=== PATIENT | female | born 1950 | race Caucasian/White ===

== ENCOUNTER → 2017-07-06 | Outpatient (CLI) | payer OTHER | LOC: M RAD 12:03 | DX: R22.42 Localized swelling, mass and lump, left lower limb (principal) | CPT/HCPCS: 93971 ==

== ENCOUNTER → 2017-08-31 | Outpatient (CLI) | payer OTHER | LOC: M RAD 10:43 | DX: I87.393 Chronic venous hypertension (idiopathic) with other complications of bilateral lower extremity (principal); M79.605 Pain in left leg; R22.42 Localized swelling, mass and lump, left lower limb | CPT/HCPCS: 93971 ==

== ENCOUNTER 2017-10-17 09:20 | Outpatient (RCR) | payer OTHER | END 2017-10-18 | disposition home or self-care (01) | LOC: M PT 09:20 | DX: Z51.89 Encounter for other specified aftercare (principal); R22.42 Localized swelling, mass and lump, left lower limb; I89.0 Lymphedema, not elsewhere classified | CPT/HCPCS: 97163 ==

== ENCOUNTER 2017-11-30 08:40 | Outpatient (RCR) | payer OTHER | END 2017-12-18 | LOC: M PT 12-01 12:36 | DX: R22.42 Localized swelling, mass and lump, left lower limb (principal); I89.0 Lymphedema, not elsewhere classified | CPT/HCPCS: 97140 ==

== ENCOUNTER 2017-12-19 08:22 | Outpatient (RCR) | payer OTHER | END 2018-01-18 | LOC: M PT 08:22 | DX: R22.42 Localized swelling, mass and lump, left lower limb (principal) | CPT/HCPCS: 97140 ==

== ENCOUNTER 2018-06-21 08:56 | Outpatient (RCR) | payer MEDICARE ==
[~2018-06-21 08:56] MED LIST: ACET500C PO; ASPI-225 PO; ASPI81TA85 PO; ATOR40TA75 PO; BISO5TAB5 PO; CALTTAB11 PO; CLAR10CA3 PO; COUM2.5T17 PO; CYCL10TA PO; DEMA20TA6 PO; DIAZ5TAB PO; DOCU100C16 PO; DYAZ37.5 PO; FLOV100A3 IN; FLUTISP; GARL10004 PO; LEVAINH INH; LIPI20TA PO; LOSA100T50 PO; MULTCAP PO; OMEG100011 PO; PERC5TAB12 PO; PROT1TAB2 PO; RANI1TAB6 PO; ROPI0.5T PO; SING10TA32 PO; SUCR1TA PO; TIZA4CAP PO; TRAM50TA2 PO; TYLE325T5 PO; ULTR50TA8 PO; VITA250L PO; VITA30004 PO; [UNRECOGNIZED DRUG - OTHER] TOP; calcium carbonate OR; cholecalciferol OR; flaxseed OR; lidocaine patch TOP
== END 2018-07-18 ==
LOC: M PT 08:56
PROVIDERS: ATTEND Surgery Vascular Surgery
DX: R22.42 Localized swelling, mass and lump, left lower limb (principal)

== ENCOUNTER → 2018-11-04 | Outpatient (CLI) | payer MEDICARE ==
--- NOTE | 2018-11-05 09:25 | REP ---
MRI LUMBAR SPINE WITHOUT CONTRAST: 11/04/2018. Comparison: 09/24/2016. Clinical history: Low back pain. Spinal stenosis. Evaluate for HNP or other. Technique: Standard axial and sagittal images in multiple sequences provided. There is decreased disc water signal throughout the lumbar spine although least at the L2-3 level. The disc heights are diminished as well except at the L2-3 level. All of this is unchanged. Vertebral body heights are maintained. There are a few scattered small hemangiomas in the vertebral bodies at L3, L2 and T12. There are discogenic endplate changes most prominently at L5-S1 and L4-5. Grade 1 anterolisthesis of L4 on 5. Conus terminates at superior aspect of L1. T11-12, T12-L1 and L1-2 levels show no spinal or foraminal stenosis. There is mild disc bulge and facet hypertrophy at L1-2. At L2-3, there is no significant disc bulge or herniation and no spinal or foraminal stenosis. At L3-4, there is a broad-based disc bulge thinning the ventral subarachnoid space. Ligamentum and facet hypertrophy combine to cause some central canal stenosis with loss of much of the subarachnoid space and crowding of the nerve roots. This has increased significantly since the previous study. The left paracentral disc extrusion on the previous study is much smaller. Bulge extends into the foramina on both sides. There is loss of perineural fat, more on the left than right, but no nerve root compression. At L4-5, there is a broad-based disc bulge with left paracentral disc extrusion. This abuts and displaces the left L5 nerve root. There is lateral recess stenosis on the right. Central canal stenosis due to that factor and some ligamentous and facet hypertrophy. This stenosis has also increased due to combined factors and that disc extrusion, which has increased. There is foraminal encroachment and nerve root compression of both L4 roots at this level within the foramina. At L5-S1, there is also a broad-based disc bulge with small central disc protrusion, ligamentum and facet hypertrophy contribute to lateral recess stenosis. The bulge abuts the S1 nerve roots in the canal. There is bilateral foraminal encroachment with L5 nerve root compression due to the broad-based disc bulge which is circumferential and the facet hypertrophic changes. Impression: 1. The L3-4 diffuse disc bulge is again noted but the disc extrusion is smaller than last year's study. Due to combined factors, however, central canal stenosis is worse. Loss of perineural fat but no nerve root compression noted. 2. The L4-5 disc level shows tight spinal stenosis with a grade 1 anterolisthesis unchanged and with a broad-based disc bulge and left paracentral disc extrusion, this extrusion is larger than last year's study and contributes to the worsening central canal stenosis. There is bilateral foraminal encroachment with L4 nerve root compression due to combined factors. 3. The L5-S1 level shows mild broad-based disc bulge with small central disc protrusion with lateral recess stenosis abutting the S1 nerve roots. The bilateral L5 nerve roots in the foramina show compression due to combined factors. 4. Levels above without significant spinal or foraminal stenosis. Electronically Signed by Mike Karimi MD 11/05/2018 08:15 P
== END ==
LOC: M RAD 13:15
PROVIDERS: ATTEND Orthopaedic Surgery
DX: M48.061 Spinal stenosis, lumbar region without neurogenic claudication (principal); M51.26 Other intervertebral disc displacement, lumbar region

== ENCOUNTER 2018-12-21 07:41 | Outpatient (RCR) | payer MEDICARE ==
[~2018-12-21 07:41] MED LIST changes: -BISO5TAB5 PO; +BISO5TAB9 PO; +RANI-356 PO; -RANI1TAB6 PO
== END 2019-01-18 ==
LOC: M PT 07:41
PROVIDERS: ATTEND Family Medicine
DX: R22.42 Localized swelling, mass and lump, left lower limb (principal); I89.0 Lymphedema, not elsewhere classified

== ENCOUNTER → 2018-12-29 | Outpatient (CLI) | payer MEDICARE ==
[~2018-12-29] MED LIST changes: +LIDOCAINE 1% MDV 20ML VIAL As Ordered ONE
[2018-12-29 13:45] VITALS: BP 170/74
--- NOTE | 2019-01-02 09:16 | REP ---
CT-GUIDED LEFT HIP BIOPSY The procedure was performed under the direct supervision of Dr. Pugh. The patient has a history of chronic deformity of the left hip including loss of the normal left femoral head and a large amount of granulation tissue replacing the left hip joint seen on a previous MRI from [facility] performed on 11/24/2018. The risks and benefits of the procedure were explained to the patient and informed consent was obtained. The left hip joint was localized using CT guidance. The skin was prepped and draped in a sterile fashion. 1% lidocaine was used as a local anesthetic. A using CT guidance a 17/18 gauge coaxial needle biopsy system was inserted and advanced into the joint. Eight core biopsy samples and a few drops of red colored aspirate were withdrawn and sent to lab for analysis. The patient tolerated the procedure well and there were no immediate complications. After the appropriate amount of monitored convalescence the patient was discharged from the department. Electronically Signed by KATHI Lopez 12/29/2018 02:58 P Electronically Signed by Juan J Pugh MD 01/02/2019 09:08 A
== END ==
LOC: M IRPRO 11:50
DX: M25.852 Other specified joint disorders, left hip (principal); Z88.8 Allergy status to other drugs, medicaments and biological substances

== ENCOUNTER → 2019-02-01 | Outpatient (CLI) | payer MEDICARE ==
[~2019-02-01] MED LIST changes: -LIDOCAINE 1% MDV 20ML VIAL As Ordered ONE
--- NOTE | 2019-02-01 09:20 | ECGEPIP ---
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
[2019-02-01 09:23] LABS: HEMATOCRIT 36.4 % (36.0-47.0); HEMOGLOBIN 11.9 g/dl (12.0-15.5); MEAN CORPUSCULAR HEMOGLOBIN 30.7 pg (27.0-33.0); MEAN CORPUSCULAR HGB CONC 32.7 g/dl (32.0-36.5); MEAN CORPUSCULAR VOLUME 93.8 fl (80.0-96.0); PLATELET COUNT, AUTOMATED 299 10^3/uL (150-450); RED BLOOD COUNT 3.88 10^6/uL (4.00-5.40); WHITE BLOOD COUNT 7.3 10^3/uL (4.0-10.0)
[2019-02-01 09:38] LABS: INR 1.03; PROTHROMBIN TIME 13.2 SECONDS (11.8-14.0)
[2019-02-01 09:44] LABS: ERYTHROCYTE SEDIMENTATION RATE 60 mm/hr (0-30)
[2019-02-01 09:49] LABS: ALBUMIN 3.7 GM/DL (3.2-5.2); ALT/SGPT 21 U/L (12-78); BILIRUBIN,TOTAL 0.9 MG/DL (0.2-1.0); BLOOD UREA NITROGEN 12 MG/DL (7-18); CALCIUM LEVEL 9.5 MG/DL (8.8-10.2); CARBON DIOXIDE LEVEL 29 MEQ/L (21-32); CHLORIDE LEVEL 105 MEQ/L (98-107); CREATININE FOR GFR 0.62 MG/DL (0.55-1.30); GLOMERULAR FILTRATION RATE > 60.0 (>39); GLUCOSE, FASTING 103 MG/DL (70-100); POTASSIUM SERUM 3.5 MEQ/L (3.5-5.1); SODIUM LEVEL 141 MEQ/L (136-145); TOTAL PROTEIN 7.5 GM/DL (6.4-8.2)
--- NOTE | 2019-02-01 11:49 | REP ---
Chest x-ray: Two views. History: Left hip osteoarthritis. Preop. Comparison study: January 18, 2017. Findings: There are granulomatous calcific residuals. Heart is mildly enlarged unchanged. Lungs are well inflated and otherwise clear. The aorta is slightly tortuous. There are clips in right upper quadrant of the abdomen and degenerative changes are seen in the thoracic spine as before. Impression: Mild cardiomegaly. Old granulomatous changes. Otherwise no acute disease. Electronically Signed by Alejandro Barrera MD 02/01/2019 12:09 P
== END ==
LOC: M LAB 07:59
PROVIDERS: ATTEND Orthopaedic Surgery
DX: Z01.811 Encounter for preprocedural respiratory examination (principal); M16.11 Unilateral primary osteoarthritis, right hip; I51.7 Cardiomegaly

== ENCOUNTER 2019-02-09 06:07 | Inpatient (IN) | payer MEDICARE ==
--- NOTE | 2019-02-07 10:20 | HPE ---
DATE OF ANTICIPATED ADMISSION: 02/09/2019 ATTENDING PHYSICIAN: Dr. Wells CHIEF COMPLAINT: Left hip pain and stiffness. HISTORY: The patient is a 69-year-old female with progressively worsening left hip pain and stiffness. She has failed to improve with conservative measures. She continues to have symptoms with weightbearing activities and activities of daily living. She has consented for an elective left total hip arthroplasty with Dr. Wells for her continued symptoms. Medical optimization pending with Dr. Dwyer. CURRENT MEDICATIONS: - Protonix 40 mg daily - a daily multivitamin - losartan 100 mg daily - Requip 0.5 mg every evening - nystatin/triamcinolone ointment twice daily as needed - Ultram 50 mg every 6 hours as needed for pain - Singulair 10 mg at bedtime - Flovent 100 mcg once daily - levalbuterol 45 mcg inhaler as needed - Lipitor 40 mg daily - vitamin B12 250 mcg daily - Tylenol 500 mg twice daily - aspirin 81 mg daily - bisoprolol 5 mg daily - docusate 100 mg twice daily - calcium with vitamin D 600/800 mg daily - Flonase 2 sprays in each nostril daily MEDICATION ALLERGIES: MECLIZINE, SUDAFED. CHRONIC MEDICAL CONDITIONS: 1. Hypertension. 2. Hyperlipidemia. 3. Gastroesophageal reflux disease. 4. Hiatal hernia. 5. Asthma. 6. Restless leg syndrome. 7. Obstructive sleep apnea. SURGICAL HISTORY: 1. Tubal ligation. 2. Carpal tunnel release bilaterally. 3. Cholecystectomy. 4. Cataract removal. 5. Right total knee arthroplasty. SOCIAL HISTORY: Patient denies tobacco and alcohol use. Patient is and lives at home with spouse. REVIEW OF SYSTEMS: Patient denies fevers, chills, nausea, vomiting or diarrhea. She denies chest pain, shortness of breath, lightheadedness, dizziness or headaches. She denies any abdominal pain. She denies any recent upper respiratory or urinary tract infection symptoms. She continues to have left hip pain with weightbearing activities and activities of daily living. PHYSICAL EXAMINATION: General: Well-nourished, well-developed female, in no apparent distress. She is alert, oriented and cooperative. Mood and affect are appropriate. Vital signs: Height 4 feet 8 inches. Weight 205 pounds. Temperature 96.7. Blood pressure 124/72. Heart rate 70. Respirations 14. Neck: Supple without lymphadenopathy. Heart: Regular rate and rhythm. Lungs: Clear to auscultation bilaterally. Breathing is regular and nonlabored. Abdomen: Bowel sounds present. Abdomen is soft and nontender to palpation. Musculoskeletal: Left hip exhibits no gross abnormalities. Skin is intact. She has significantly decreased flexion internal and external rotation at the hip. Strength is 4+/5 secondary to pain. Calf is soft, nontender to palpation with no palpable cords noted. She is neurovascularly intact distally. LABORATORY DATA: Chest x-ray: Mild cardiomegaly with old granulomatous changes. Otherwise, no acute disease. Left hip x-ray: Notable for severe advanced end-stage degenerative changes. EKG: Sinus tachycardia with low QRS voltage in the precordial leads. Possible anterior myocardial infarction probably old poor R wave progression (PRWP) without change. Possible inferior wall myocardial infarction (IA), age undetermined. Prothrombin time 13.2, INR 1.03. Complete blood count: ESR elevated at 60, WBC 7.3, RBC decreased at 3.88, hemoglobin decreased at 11.9, hematocrit 36.4, platelets 299. Comprehensive metabolic profile: Fasting glucose elevated at 103. BUN 12, creatinine 0.62, GFR greater than 60. Sodium 141, potassium 3.5, chloride 105, carbon dioxide 28. Anion gap decreased at 7. Calcium 9.5. AST 29, ALT 21, alkaline phosphatase 86. Total bilirubin 0.9. Total protein 7.5. Albumin 3.7. Albumin-globulin ratio decreased at 0.97. IMPRESSION: Left hip osteoarthritis with x-rays notable for severe advanced degenerative changes. PLAN: Patient has consented for an elective left total hip arthroplasty with Dr. Wells for her continued symptoms. Medical optimization pending with Dr. Dwyer. FRANKIE
[2019-02-09] VITALS (8 sets, daily range): BP systolic 138–147; BP diastolic 71–80
[~2019-02-09] VITALS: Ht 170.2 cm; Wt 93.0 kg
[~2019-02-09 06:07] MED LIST changes: +LIDOCAINE 1% MDV 20ML VIAL SQ PRN; +LR 1,000 ML IV ONE; +ceFAZolin SOD 2 GM in IV 1 EA IV ONE
[2019-02-09] MEDS ORDERED: ceFAZolin 1GM INJ (J0690 PER 500MG) As Ordered ONE (06:57)
[2019-02-09] MEDS ORDERED: LIDOCAINE 2% INJ 100 MG/5 ML SDV (FOR ANES.) As Ordered ONE (06:57)
[2019-02-09] MEDS ORDERED: fentaNYL 100 MCG/2 ML INJECTION (J3010) As Ordered ONE (06:58)
[2019-02-09] MEDS ORDERED: ROCURONIUM BROMIDE 50 MG/5 ML VIAL As Ordered ONE (06:58)
[2019-02-09] MEDS ORDERED: PROPOFOL 500 MG/50 ML VIAL As Ordered ONE ×2 (06:58→08:43)
[2019-02-09] MEDS ORDERED: EPINEPHrine INJ 1 MG/ML 1ML AMP As Ordered ONE (06:58)
[2019-02-09] MEDS ORDERED: dexameTHASONE 4 MG/ML 1ML VIAL (J1100) As Ordered ONE (07:04)
[2019-02-09] MEDS ORDERED: TRANEXAMIC ACID 100 MG/ML 10ML VIAL As Ordered ONE (07:12)
[2019-02-09] MEDS ORDERED: MIDAZOLAM INJ 2 MG/2 ML VIAL (J2250) As Ordered ONE (07:40)
[2019-02-09] MEDS ORDERED: BUPIVACAINE HCL 0.5% 30 ML VIAL As Ordered ONE (07:45)
[2019-02-09] MEDS ORDERED: PHENYLEPHRINE INJ 10MG/ML VIAL (J2370) As Ordered ONE (08:00)
[2019-02-09] MEDS ORDERED: ePHEDrine SULFATE 25 MG/5 ML(5MG/ML) SYRINGE As Ordered ONE (08:23)
[2019-02-09] MEDS ORDERED: PHENYLephrine HCL 500 MCG/5 ML (100MCG/ML) SYRINGE (J2370) As Ordered ONE (08:23)
[2019-02-09] MEDS ORDERED: ONDANSETRON 4MG/2ML VIAL (J2405) As Ordered ONE (08:24)
[2019-02-09] MEDS: LORATADINE 10 MG TAB PO SCH (09:00)
[2019-02-09] MEDS ORDERED: VANCOMYCIN 1000 MG/20 ML VIAL (J3370) As Ordered ONE (09:04)
[2019-02-09] MEDS ORDERED: METHOCARBAMOL 1,000 MG/10 ML VIAL (J2800) As Ordered ONE (09:41)
[2019-02-09] MEDS ORDERED: ONDANSETRON 4MG/2ML VIAL (J2405) IV PRN (10:15)
[2019-02-09] MEDS ORDERED: fentaNYL 100 MCG/2 ML INJECTION (J3010) IV PRN (10:15)
[2019-02-09] MEDS ORDERED: PERCOCET 5MG/325MG TAB PO PRN ×3 (10:15→12:15)
[2019-02-09] MEDS ORDERED: MORPHINE 10 MG/ML 1ML VIAL (J2270) IV PRN (10:15)
[2019-02-09] MEDS ORDERED: LR 1,000 ML IV SCH (10:15)
[2019-02-09] MEDS ORDERED: HYDROMORPHONE HCL 0.5 MG/ 0.5 ML SYRINGE (J1170 PER 1) IV PRN ×2 (10:30)
[2019-02-09] MEDS ORDERED: FLEET ENEMA PR PRN (10:30)
[2019-02-09] MEDS ORDERED: ACETAMINOPHEN TAB 650MG DOSE (2X325MG) PO PRN (10:30)
[2019-02-09] MEDS: LR 1,000 ML IV SCH ×2 (10:30→20:06)
--- NOTE | 2019-02-09 11:56 | REP ---
Left hip: Two views. History: Postop evaluation. Left hip arthroplasty. Comparison study September 19, 2018. Findings: AP and cross-table lateral views demonstrate left hip arthroplasty components in good position relative to each other and their [place] bones. There is superior acetabular bony hypertrophy as noted previously. Lateral skin erika are seen. Impression: Status post left hip arthroplasty. Electronically Signed by Alejandro Barrera MD 02/09/2019 02:10 P
[2019-02-09] MEDS ORDERED: LEVALBUTEROL 1.25 MG/0.5 ML CONCENTRATE NEB INH PRN (12:15)
[2019-02-09] MEDS ORDERED: ONDANSETRON 4 MG TAB (S0181) PO PRN (12:15)
--- NOTE | 2019-02-09 13:17 | HPEPDOC ---
General Date of Admission Feb 09, 2019 at 06:07 Date of Service: Feb 09, 2019 Chief Complaint The patient is a 69-year-old female admitted with a reason for visit of Left Osteoarthritis Hip. Source: Patient, Old records History of Present Illness Consultation Report Consultation requested by orthopedics Consultation for the management of medical commorbidities. HPI: 69 year of female admitted for elective left hip total arthroplasty for advanced OA not controlled by medical management and hospitalist has been consulted for the management of her medical comorbidities. patient complains of some pain in the left hip at the surgical site , dull aching, said just took a pain medicine. No radiation about 3/10 in intensity. No nausea or vomiting, no chest pain or sob. Home Medications Scheduled (Acetaminophen) 500 Mg Cap, 1,000 MG PO BID, (Reported) (Garlic) 1,000 Mg Cap, 1,000 MG PO DAILY, (Reported) (Caltrate 600+D 600-800 mg-Unit) 1 Tab Tab, 1 TAB PO BID, (Reported) Atorvastatin Calcium (Lipitor) 20 Mg Tab, 40 MG PO QHS, (Reported) Bisoprolol Fumarate (Bisoprolol Fumarate) 5 Mg Tab, 5 MG PO DAILY, (Reported) Cholecalciferol (Vitamin D3) (Vitamin D3) 3,000 Unit Tab, 3,000 UNIT PO DAILY, (Reported) Cyanocobalamin (Vitamin B-12) (Vitamin B-12) 250 Mcg Roselyn, 250 MCG PO DAILY, (Reported) Docusate Sodium (Docusate Sodium) 100 Mg Cap, 100 MG PO DAILY, (Reported) Fluticasone Propionate (Flovent Diskus) 100 Mcg/Blist Aer, 200 MCG IN BID, (Reported) Fluticasone Propionate (Fluticasone Propionate) 50 Mcg/Act Spr, 2 SPRAY NA DAILY, (Reported) Loratadine (Claritin) 10 Mg Cap, 10 MG PO DAILY, (Reported) Losartan Potassium (Losartan Potassium) 100 Mg Tab, 100 MG PO DAILY, (Reported) Montelukast Sodium (Singulair) 10 Mg Tab, 10 MG PO DAILY, (Reported) Multivitamin (Multivitamins) 1 Cap Cap, 1 CAP PO DAILY, (Reported) Hitchcock-3 Fatty Acids/Fish Oil (Hitchcock 3 1,000 mg Softgel) 1 Cap Cap, 1 CAP PO BID, (Reported) Pantoprazole Sodium (Protonix) 40 Mg Tab, 40 MG PO DAILY, (Reported) Ranitidine HCl (Ranitidine HCl) 150 Mg Tab, 300 MG PO QHS, (Reported) Rivaroxaban (Xarelto) 10 Mg Tablet, 10 MG PO DAILY Ropinirole HCl (Ropinirole HCl) 0.5 Mg Tab, 0.5 MG PO QHS, (Reported) Tizanidine HCl (Tizanidine HCl) 4 Mg Cap, 4 MG PO TID, (Reported) Torsemide (Demadex) 20 Mg Tab, 20 MG PO DAILY, (Reported) Triamterene/Hydrochlorothiazid (Dyazide 37.5-25 Capsule) 1 Cap Cap, 1 CAP PO DAILY, (Reported) [flaxseed] , 1,000 MG OR BID, (Reported) [lidocaine patch] , TOP PRN, (Reported) [nystatin tiamcin] , TOP BID, (Reported) Scheduled PRN Levalbuterol Hydrochloride (Xopenex Hfa) 45 Mcg/Act Aer, 2 PUFF INH Q6H PRN for SHORTNESS OF BREATH, (Reported) Tramadol HCl (Ultram) 50 Mg Tab, 50 MG PO Q6H PRN for PAIN, (Reported) MDD 4 Tramadol HCl (Tramadol HCl) 50 Mg Tablet, 1-2 TAB PO Q4H PRN for PAIN Allergies Coded Allergies: pseudoephedrine (Verified Allergy, Unknown, 01/31/19) meclizine (Verified Adverse Reaction, Intermediate, PARANOIA/PANIC ATTACK, 02/08/19) Past Medical History Medical History 1. Hypertension. 2. Hyperlipidemia. 3. Gastroesophageal reflux disease. 4. Hiatal hernia. 5. Asthma. 6. Restless leg syndrome. 7. Obstructive sleep apnea on CPAP 8. Spinal canal stenosis 9. obesity Surgical History 1. Tubal ligation. 2. Carpal tunnel release bilaterally. 3. Cholecystectomy. 4. Cataract removal. 5. Right total knee arthroplasty. Family History Significant Family History: Heart disease, Hypertension (mother and father) Mother and father both had heart attacks Social History * Smoker: Denies Alcohol: Denies Drugs: denies A-FIB/CHADSVASC A-FIB History Current/History of A-Fib/PAF?: No Review of Systems Constitutional: Denies: Chills, Fever, Night Sweats Eyes: Denies: Pain, Vision change ENT: Denies: Head Aches, Ear Pain, Dysphagia Skin: Denies: Rash, Lesions, Breakdown Pulmonary: Denies: Dyspnea, Cough Cardiovascular: Denies: Chest Pain, Palpitations, Orthopnea, Paroxysmal Noc. Dyspnea, Lt Headedness Gastrointestinal: Denies: Nausea, Vomiting, Abdominal Pain, Diarrhea Genitourinary: Denies: Dysuria, Frequency, Incontinence, Retention Musculoskeletal: Reports: Joint Pain (left hip); Denies: Neck Pain, Back Pain, Muscle Pain, Spasms Neurological: Denies: Weakness, Numbness, Change in speech, Confusion Physical Examination General Exam: Positive: Alert, Cooperative, No Acute Distress Eye Exam: Positive: PERRLA, Conjunctiva & lids normal, EOMI; Negative: Sclera icteric ENT Exam: Positive: Atraumatic, Mucous membr. moist/pink, Pharynx Normal Neck Exam: Positive: Supple; Negative: JVD, thyromegaly Chest Exam: Positive: Clear to auscultation, Normal air movement Heart Exam: Positive: Rate Normal, Regular Rhythm, Normal S1, Normal S2, Murmurs (systolic murmur. ); Negative: Rubs Abdomen Exam: Positive: Normal bowel sounds, Soft; Negative: Tenderness, Hepatospenomegaly Extremity Exam: Positive: Edema (bipedal), Normal pulses; Negative: Clubbing, Cyanosis Skin Exam: Positive: Nl turgor and temperature; Negative: Breakdown, Lesion Vital Signs Vital Signs Date Time Temp Pulse Resp B/P (MAP) Pulse Ox O2 Delivery O2 Flow Rate FiO2 02/09/19 11:05 80 18 161/81 (107) 98 Nasal Cannula 2 02/09/19 10:35 98.4 Assessment/Plan 69 year of female admitted for elective left hip total arthroplasty for advanced OA not controlled by medical mangement and hospitalist has been consulted for the management of her medical commorbidities. S/P left hip arthroplasty pain control and dvt prophylaxis as epr ortho. P T and OT. Hypertension. continue bisoprolol, will hold diuretics and losartan today. Hyperlipidemia. continue statin Chronic venous insufficiency and chronic bipedal swelling will resume tripple diuretics tomorrow. Gastroesophageal reflux disease/ hiatal hernia famotidine and pantoprazole Asthma. continue fluticasone inhalor.albuterol prn. singulair and loratadine Restless leg syndrome. requip Obesity and Obstructive sleep apnea on CPAP may use own CPAP. Says she does not much use it at home. Spinal canal stenosis stable. Plan / VTE VTE Prophylaxis Ordered?: Yes KISHAN RODRÍGUEZ MD Feb 09, 2019 12:08
[2019-02-09] MEDS: ceFAZolin SOD 2 GM in IV 1 EA IV SCH ×2 (14:35→20:05)
[2019-02-09] MEDS ORDERED: ATORVASTATIN 20 MG TAB PO SCH (21:00)
[2019-02-09] MEDS ORDERED: rOPINIRole 0.25 MG TAB(REQUIP) PO SCH (21:00)
[2019-02-09] MEDS ORDERED: FAMOTIDINE 20 MG TAB PO SCH (21:00)
[2019-02-09] MEDS: FLUTICASONE HFA 110 MCG 12 GM INHALER (FLOVENT) INH SCH (21:18)
[2019-02-10 02:00] VITALS: BP 132/71
[2019-02-10] MEDS: ceFAZolin SOD 2 GM in IV 1 EA IV SCH (02:12)
[2019-02-10 06:00] VITALS: BP 118/61
[2019-02-10] MEDS ORDERED: XARE10TA PO (06:25)
[2019-02-10] MEDS ORDERED: TRAM50TA2 PO (06:25)
[2019-02-10 07:21] LABS: HEMATOCRIT 27.6 % (36.0-47.0); HEMOGLOBIN 8.9 g/dl (12.0-15.5); MEAN CORPUSCULAR HEMOGLOBIN 29.9 pg (27.0-33.0); MEAN CORPUSCULAR HGB CONC 32.2 g/dl (32.0-36.5); MEAN CORPUSCULAR VOLUME 92.6 fl (80.0-96.0); PLATELET COUNT, AUTOMATED 269 10^3/uL (150-450); RED BLOOD COUNT 2.98 10^6/uL (4.00-5.40); WHITE BLOOD COUNT 8.5 10^3/uL (4.0-10.0)
[2019-02-10 07:33] LABS: INR 1.19; PROTHROMBIN TIME 14.8 SECONDS (11.8-14.0)
[2019-02-10 07:48] LABS: BLOOD UREA NITROGEN 12 MG/DL (7-18); CALCIUM LEVEL 8.8 MG/DL (8.8-10.2); CARBON DIOXIDE LEVEL 29 MEQ/L (21-32); CHLORIDE LEVEL 108 MEQ/L (98-107); CREATININE FOR GFR 0.47 MG/DL (0.55-1.30); GLOMERULAR FILTRATION RATE > 60.0 (>39); GLUCOSE, FASTING 113 MG/DL (70-100); POTASSIUM SERUM 3.7 MEQ/L (3.5-5.1); SODIUM LEVEL 142 MEQ/L (136-145)
[2019-02-10] MEDS: FLUTICASONE HFA 110 MCG 12 GM INHALER (FLOVENT) INH SCH (08:30)
[2019-02-10 08:38] VITALS: BP 118/61
[2019-02-10] MEDS: LORATADINE 10 MG TAB PO SCH (08:38)
[2019-02-10] MEDS ORDERED: BISOPROLOL FUMARATE 5 MG TAB PO SCH (09:00)
[2019-02-10] MEDS ORDERED: MOM 30ML SUSPENSION UDC PO SCH (09:00)
[2019-02-10] MEDS ORDERED: MIRALAX *UNIT DOSE* 17GM PACKET PO SCH (09:00)
[2019-02-10] MEDS ORDERED: MONTELUKAST 10 MG TAB PO SCH (09:00)
[2019-02-10] MEDS ORDERED: PANTOPRAZOLE 40MG TAB (PROTONIX) PO SCH (09:00)
[2019-02-10] MEDS ORDERED: RIVAROXABAN 10 MG TAB (XARELTO) PO SCH (18:00)
--- NOTE | 2019-02-12 15:31 | RO ---
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 OPERATIVE PROCEDURE: Left total hip arthroplasty using a size 50 Gription Sector cup with a single screw and a size 6 standard offset [place] stem with a +1.5 neck and a 32 mm ball and a 32 mm neutral liner. Prosthesis made by [employer]. SURGEON: Javid Wells MD [employer] ASSOCIATE: ANESTHESIA: Spinal. COMPLICATIONS: None. ESTIMATED BLOOD LOSS: Approximately 300 mL FINDINGS: She had advanced osteonecrosis of the femoral head with significant callus and heterotopic bone within the depths of the acetabulum and the periacetabular area. No signs of infection or tumor noted. SPECIMENS: Remnant of the femoral head. DESCRIPTION OF PROCEDURE: Antibiotics were given intravenously preoperatively then a successful spinal anesthetic was established and she was placed in a lateral decubitus position, left hip uppermost. Axillary roll was utilized, dominant well padded especially the peroneal nerve. Left hip area was then carefully prepped and draped in the usual sterile fashion. It is noteworthy she had some rashes in her abdomen around the pannus of her belly and posteriorly. She had taken a couple of falls apparently over the last week or two. Her left hip area was carefully prepped in the usual sterile fashion, again as mentioned, and then after appropriate time out a longitudinal anterolateral incision was made for a direct anterolateral approach to the hip. Bovie cautery was used to coagulate crossing vessels. Tensor fascia divided. Gluteus medius carefully split in the anterior one-third posterior two-third junction as we carefully dissected down trying to be very careful because she was quite shortened and we wanted to stay away from the superior vertebral nerve. We carefully peeled the gluteus minimus and medius and anterior capsule off the proximal femur as we externally rotated the hip and expose the obvious osteonecrotic remnant of the femoral head. Piriformis fossa was identified. Starter reamer followed by canal reamer and then the lateralizing reamer placed. Then we reamed to a size 6 reamer. Proximal femoral neck osteotomy was then performed using the guide and then we broached up to a size 6 with excellent purchase. We then attempted to expose the acetabulum. The acetabulum was filled with heterotopic bone and fibrotic material. It took a while for us to carefully dissect out the soft tissues that had been enfolded into the acetabulum and removed the remnants of this debris. Eventually we were able to establish reasonable anatomy to the existing acetabulum. We then began reaming with a 46 advancing up to 49. Trialed a 50, fit fairly snug but her bone was actually quite soft. She had been nonweightbearing and wheelchair bound actually for 6 months. So I felt the Sector cup with screw fixation was the best way to establish good stable acetabular fixation. I did not feel I could ream more than 50 for fear of over thinning the acetabular bearden. A copious amount of pulsatile lavage irrigant solution was instilled into the hip joint several times throughout the operation. Once we had nice good clear visualization of the acetabulum, the real cup was placed using the alignment guide to estimate or abduction and version. She actually had reasonable fixation, but I supplemented it with a single screw with excellent purchase. I drilled to a depth of 20 mm and used a 20 mm screw. Polyethylene liner was then placed. We irrigated and placed tranexamic acid as well at this point and then exposed the proximal femur, irrigated out the femoral canal, trialed with #6 broach at 1.5 neck length with a 32 ball and she had very good stability with flexion and internal rotation and extension external rotation with minimal soft tissue telescoping. Thus, I did feel that this was the appropriate size to use. We removed the trials, irrigated again, placed the real #6 stem, followed by the 32 x 1.5 ball and then irrigated out the hip joint and then reduced the hip. Again, she was very stable. We placed some tranexamic acid into the depth of the hip wound as well as sprinkled 500 mg of vancomycin into the depth of the wound for infection prophylaxis. We began closing the anterior hip capsule and gluteus minimus back anatomically with interrupted #1 PDS sutures and then gluteus medius closed anatomically as well with interrupted #1 PDS sutures. We then irrigated again and then closed the tensor fascia with two #1 PDS sutures distally, then a #1 running Stratafix. Irrigated again. The rest of the vancomycin powder was instilled into the wound and then we closed the deep subdermal tissues with interrupted #2-0 PDS sutures, skin was closed with erika, covered by an Optifoam with dry sterile bulky dressing. She was then turned supine on the table, then transferred to the recovery room in stable condition. There were no intraoperative complications.
--- NOTE | 2019-02-15 15:48 | DSES ---
DATE OF ADMISSION: 02/09/2019 DATE OF DISCHARGE: 02/10/2019 ADMISSION DIAGNOSIS: Osteoarthritis and femoral head collapse of left hip. OTHER DIAGNOSES: 1. Hypertension. 2. Hyperlipidemia. 3. Gastroesophageal reflux disease. 4. Hiatal hernia. 5. Asthma. 6. Restless leg syndrome. 7. Obstructive sleep apnea. DISCHARGE DIAGNOSIS: Osteoarthritis, left hip, status post left total hip arthroplasty. OPERATION PERFORMED: Left total hip arthroplasty. HISTORY: This is a 69-year-old female patient with progressively worsening left hip pain and stiffness that failed to improve with conservative management. She was admitted for elective hip replacement on the left side. HOSPITAL COURSE: The patient was admitted on the day of surgery and underwent a left total hip arthroplasty, which was uneventful. She did well in the postoperative. Hospital course was without complication. She was up with physical therapy per their protocol and was weightbearing as tolerated on the left lower extremity. Her pain was controlled on the day of discharge. She will follow deep vein thrombosis (DVT) prophylaxis for 30 days postoperatively as well as oral medications for her pain control. She will resume her preoperative medications and diet. She was given instructions to include, but not limited to, wound monitoring and activity limitations. She will follow up in our office in 10-40 days for surgical followup. Please refer to the medical record for further details.
== END 2019-02-10 11:00 | disposition home health service (06) | DRG 470 ==
LOC: M OR 06:07 → M MS5PR 11:25
PROVIDERS: ADMIT Orthopaedic Surgery; ATTEND Orthopaedic Surgery
PROC: 0SRB0JZ Replacement of Left Hip Joint with Synthetic Substitute, Open Approach (ICD-10-PCS; principal; 2019-02-09 07:30)
DX: M16.12 Unilateral primary osteoarthritis, left hip (principal); E66.9 Obesity, unspecified; E78.5 Hyperlipidemia, unspecified; G25.81 Restless legs syndrome; G47.33 Obstructive sleep apnea (adult) (pediatric); I10 Essential (primary) hypertension; J45.909 Unspecified asthma, uncomplicated; K21.9 Gastro-esophageal reflux disease without esophagitis; K44.9 Diaphragmatic hernia without obstruction or gangrene; M48.00 Spinal stenosis, site unspecified; Z79.82 Long term (current) use of aspirin; Z79.51 Long term (current) use of inhaled steroids; Z79.899 Other long term (current) drug therapy; Z88.8 Allergy status to other drugs, medicaments and biological substances; Z90.49 Acquired absence of other specified parts of digestive tract; Z98.51 Tubal ligation status; Z98.49 Cataract extraction status, unspecified eye; Z96.651 Presence of right artificial knee joint; Z68.32 Body mass index [BMI] 32.0-32.9, adult; I87.2 Venous insufficiency (chronic) (peripheral); R60.0 Localized edema

== ENCOUNTER → 2019-05-02 | Outpatient (REF) | payer MEDICARE ==
[~2019-05-02] MED LIST changes: -ASPI-225 PO; +ASPI81TA78 PO; +BISO5TAB14 PO; -BISO5TAB9 PO; -LIDOCAINE 1% MDV 20ML VIAL SQ PRN; -LR 1,000 ML IV ONE; -RANI-356 PO; +RANI-397 PO; -ROPI0.5T PO; +ROPI0.5T3 PO; +XARE10TA PO; -ceFAZolin SOD 2 GM in IV 1 EA IV ONE
[2019-05-02 18:59] LABS: APPEARANCE, URINE HAZY (CLEAR); BACTERIA, URINE AUTO NEGATIVE (NEGATIVE); BILIRUBIN, URINE AUTO NEGATIVE (NEGATIVE); BLOOD, URINE BLOOD NEGATIVE (NEGATIVE); CALCIUM OXALATE CRYSTALS LARGE; COLOR, URINE YELLOW (YELLOW); GLUCOSE, URINE (UA) AUTO NEGATIVE (NEGATIVE); KETONE, URINE AUTO TRACE mg/dL (NEGATIVE); LEUKOCYTE ESTERASE, URINE AUTO NEGATIVE (NEGATIVE); MUCUS, URINE SMALL (NEGATIVE); NITRITE, URINE AUTO NEGATIVE (NEGATIVE); PROTEIN, URINE AUTO NEGATIVE (NEGATIVE); RBC, URINE AUTO 2 /HPF (0-3); SPECIFIC GRAVITY URINE AUTO 1.034 (1.002-1.035); SQUAMOUS EPITHELIAL CELL UR AU 1 /HPF (0-6); UROBILINOGEN, URINE AUTO 0.2 mg/dL (0.0-2.0); WBC, URINE AUTO 2 /HPF (0-3)
== END ==
LOC: M SMT 16:48
PROVIDERS: ATTEND Nurse Practitioner Family
DX: N39.41 Urge incontinence (principal)
CPT/HCPCS: 51798; 81001; 87088; 87186; G0463

== ENCOUNTER 2019-06-22 08:11 | Outpatient (RCR) | payer MEDICARE ==
[~2019-06-22 08:11] MED LIST changes: +CYCL-707 PO; -CYCL10TA PO
== END 2019-07-19 ==
LOC: M PT 08:11
PROVIDERS: ATTEND Family Medicine
DX: R22.42 Localized swelling, mass and lump, left lower limb (principal)

== ENCOUNTER 2019-11-13 11:50 | Outpatient (RCR) | payer MEDICARE ==
[~2019-11-13 11:50] MED LIST changes: -ASPI81TA85 PO; +ASPI81TA86 PO
== END 2019-11-19 ==
LOC: M PT 11:50
PROVIDERS: ATTEND Family Medicine
DX: R22.42 Localized swelling, mass and lump, left lower limb (principal)
CPT/HCPCS: 97140; 97162; G0463

== ENCOUNTER 2019-12-14 08:25 | Outpatient (RCR) | payer MEDICARE | END 2019-12-19 | LOC: M PT 08:25 | PROVIDERS: ATTEND Family Medicine | DX: I89.0 Lymphedema, not elsewhere classified (principal); R22.42 Localized swelling, mass and lump, left lower limb ==

== ENCOUNTER 2020-06-12 08:30 | Outpatient (RCR) | payer MEDICARE ==
[~2020-06-12 08:30] MED LIST changes: +FLOV100A IN; -FLOV100A3 IN
== END 2020-06-18 ==
LOC: M PT 08:30
PROVIDERS: ATTEND Family Medicine
DX: I89.0 Lymphedema, not elsewhere classified (principal)

== ENCOUNTER → 2020-08-01 | Outpatient (REF) | payer MEDICARE ==
[2020-08-01 15:52] LABS: APPEARANCE, URINE CLOUDY (CLEAR); BACTERIA, URINE AUTO NEGATIVE (NEGATIVE); BILIRUBIN, URINE AUTO NEGATIVE (NEGATIVE); BLOOD, URINE BLOOD NEGATIVE (NEGATIVE); CALCIUM OXALATE CRYSTALS SMALL; COLOR, URINE YELLOW (YELLOW); GLUCOSE, URINE (UA) AUTO NEGATIVE (NEGATIVE); KETONE, URINE AUTO NEGATIVE (NEGATIVE); LEUKOCYTE ESTERASE, URINE AUTO TRACE (NEGATIVE); NITRITE, URINE AUTO NEGATIVE (NEGATIVE); PROTEIN, URINE AUTO NEGATIVE (NEGATIVE); RBC, URINE AUTO 3 /HPF (0-3); SPECIFIC GRAVITY URINE AUTO 1.018 (1.002-1.035); SQUAMOUS EPITHELIAL CELL UR AU 1 /HPF (0-6); UROBILINOGEN, URINE AUTO 0.2 mg/dL (0.0-2.0); WBC, URINE AUTO 30 /HPF (0-3)
== END ==
LOC: M SMT 12:43
PROVIDERS: ATTEND Urology
DX: N39.41 Urge incontinence (principal)

== ENCOUNTER 2020-10-07 13:03 | Emergency (ER) | payer MEDICARE ==
[~2020-10-07] VITALS: Ht 149.9 cm; Wt 104.5 kg
[2020-10-07 14:45] LABS: BASO % 0.5 % (0.0-1.0); EOS # 0.1 10^3/uL (0.0-0.5); EOS % 1.4 % (0.0-3.0); HEMATOCRIT 43.3 % (36.0-47.0); HEMOGLOBIN 14.1 g/dl (12.0-15.5); LYMPH % 25.9 % (24.0-44.0); MEAN CORPUSCULAR HGB CONC 32.6 g/dl (32.0-36.5); MEAN CORPUSCULAR VOLUME 95.2 fl (80.0-96.0); MONO # 0.7 10^3/uL (0.0-0.8); MONO % 8.6 % (2.0-8.0); NEUTROPHILS # 4.9 10^3/uL (1.5-8.5); NEUTROPHILS % 63.3 % (36.0-66.0); PLATELET COUNT, AUTOMATED 303 10^3/uL (150-450); RED BLOOD COUNT 4.55 10^6/uL (4.00-5.40); WHITE BLOOD COUNT 7.7 10^3/uL (4.0-10.0)
--- NOTE | 2020-10-07 14:47 | REP ---
INDICATION: DYSPNEA/COUGH. COMPARISON: 02/01/2019. TECHNIQUE: Single portable AP view of the chest was performed. FINDINGS: There is significant elevation of the right hemidiaphragm. There are crowded lung markings in the right lung base. No definite acute infiltrate is seen bilaterally. I cannot rule out mild cardiomegaly. There is mild calcification of the thoracic aorta. Metallic clips are seen in the right upper quadrant of the abdomen. IMPRESSION: Significant elevation of the right hemidiaphragm. No acute infiltrate is seen. <Electronically signed by Juan J Pugh > 10/07/20 [id number]
[2020-10-07] MEDS ORDERED: FAMO10TA50 PO (14:57)
[2020-10-07] MEDS ORDERED: CYCL5TAB PO (14:57)
[2020-10-07] MEDS ORDERED: FERR325T3 PO (14:57)
[2020-10-07] MEDS ORDERED: OXYB5TAB10 PO (14:57)
[2020-10-07] MEDS ORDERED: ASPI81CH33 PO (14:57)
[2020-10-07 15:23] LABS: ALT/SGPT 28 U/L (12-78); BILIRUBIN,DIRECT 0.2 MG/DL (0.0-0.2); BILIRUBIN,TOTAL 0.7 MG/DL (0.2-1.0); BLOOD UREA NITROGEN 11 MG/DL (7-18); CARBON DIOXIDE LEVEL 35 MEQ/L (21-32); CHLORIDE LEVEL 100 MEQ/L (98-107); CK-MB VALUE MASS 1.2 NG/ML (<3.6); CPK CREATINE PHOSPHOKINASE 113 U/L (26-192); CREATININE FOR GFR 0.64 MG/DL (0.55-1.30); GLOMERULAR FILTRATION RATE > 60.0 (>39); GLUCOSE, FASTING 94 MG/DL (70-100); MB/CK RELATIVE INDEX 1.06 (< OR =4); NT-PRO BNP 121 PG/ML (<125); POTASSIUM SERUM 3.7 MEQ/L (3.5-5.1); SODIUM LEVEL 142 MEQ/L (136-145); TOTAL PROTEIN 8.1 GM/DL (6.4-8.2); TROPONIN I < 0.02 NG/ML (< 0.10)
[2020-10-07] MEDS ORDERED: ISOVUE-370 76% 100ML VIAL As Ordered ONE (15:33)
--- NOTE | 2020-10-07 15:59 | REP ---
INDICATION: SOB; r/o PE. COMPARISON: None. TECHNIQUE: Contrast dose: 75 ML of Isovue [address] technique: Helical scanning is acquired and overlapping 1.5 mm and contiguous 3 mm axial images are reformatted. In addition, maximum intensity projection and multiplanar re-formation images are generated in sagittal and coronal imaging projections. FINDINGS: There is good opacification in the pulmonary arterial tree. There is no evidence of vessel cut off or filling defect to suggest pulmonary embolus. Homogeneous opacity is seen in the thoracic aorta. There is no evidence of aneurysm or dissection. There are granulomatous calcifications in lymph nodes in the right hilus and subcarinal region. There is discoid atelectasis in the right middle lobe and right lower lobe with small air bronchograms. Lung window settings demonstrate no other pulmonary parenchymal abnormality. There is a 2.5 cm nodule in the right side of the thyroid gland. No pericardial effusion is seen. No pleural effusion is noted. In the upper abdomen, there are clips in the gallbladder fossa. Normal adrenal glands are seen. There are venous collaterals in the left upper quadrant of the abdomen. Visualized upper abdominal structures are otherwise unremarkable. The right hemidiaphragm is elevated IMPRESSION: No CT evidence of pulmonary embolus. Old granulomatous changes. Elevated right hemidiaphragm with right base discoid atelectasis. 2.5 cm right thyroid nodule. Otherwise no active disease. <Electronically signed by Agus Barrera > 10/07/20 [id number]
[2020-10-07 16:30] VITALS: BP 142/66
--- NOTE | 2020-10-08 05:15 | ECGEPIP ---
[facility] - ED Test Date: 2020-10-07 Pat Name: ANA LAURA HORAN Department: Room: - Gender: Female Psychology Physician: : [id number] Requested By: NNAMDI MEADE Order Number: [id number] Reading MD: Derek Maddox Measurements Intervals [place] Rate: 91 P: 46 [place]: 182 QRS: 11 QRSD: 84 T: 9 QT: 376 QTc: 462 Interpretive Statements Sinus rhythm with marked sinus arrhythmia with supraventricular premature complexes Cannot rule out Anterior infarct , age undetermined BASELINE ARTIFACT AFFECTS INTERPRETATION SIMILAR TO 02/01/19 Electronically Signed on 10-08-2020 5:15:28 EDT by Derek Maddox
--- NOTE | 2020-10-08 10:44 | ED PDOC ---
Post-Departure Follow-Up dr lala faxed formal report of cta chest for fu Anibal Knight MD Oct 08, 2020 10:44
== END 2020-10-07 16:58 | disposition home or self-care (01) ==
LOC: M ED 13:03
DX: R06.00 Dyspnea, unspecified (principal); E04.1 Nontoxic single thyroid nodule; I50.9 Heart failure, unspecified; I10 Essential (primary) hypertension; E78.5 Hyperlipidemia, unspecified; K21.9 Gastro-esophageal reflux disease without esophagitis; J45.909 Unspecified asthma, uncomplicated; Z79.899 Other long term (current) drug therapy; Z88.8 Allergy status to other drugs, medicaments and biological substances
CPT/HCPCS: 71045; 71275; 80048; 80076; 82550; 82553; 83880; 84443; 84484; 85025; 93005; 93041; 94760; 99285; Q9967

== ENCOUNTER → 2020-12-04 | Outpatient (CLI) | payer MEDICARE ==
[~2020-12-04] MED LIST changes: +ASPI81CH33 PO; +CYCL5TAB PO; +FAMO10TA50 PO; +FERR325T3 PO; +OXYB5TAB10 PO
--- NOTE | 2020-12-04 08:49 | PFTRPT ---
Site: [facility], [address] [place] [address], [id number] ID: [id number] Name: ANA LAURA HORAN Visit Date: 12/04/2020 Second ID: [id number] Referring Doctor: Mar Schaefer Reviewing Doctor: Luis Armando Gvain MD Museum Assistant: Luis Alberto CORREIA RRT Age: 70 : 1950 Sex: Female Race: Height: 58.00 Inches Weight: 220.00 Lbs BSA: 1.90 Order IDs: [id number] Requested Test(s): <RESP-PFT.PFT B/A> Diagnosis: R06.02 of albuterol for post bronchodilator. The results of this test appear to be valid, although the ATS standard for "end of test" was not met. Pt. had difficulty performing ALL maneuvers. Review Status: Not Reviewed Pre-Bronch Post-Bronch Pred Actual %Pred Actual %Chng SPIROMETRY FVC (L) 2.23 0.86 38 0.81 -6 FEV1 (L) 1.67 0.67 40 0.69 3 FEV1/FVC (%) 76 78 103 86 10 FEF 25% (L/sec) 4.06 2.46 60 2.99 21 FEF 50% (L/sec) 3.29 0.66 20 0.83 25 FEF 75% (L/sec) 0.94 0.20 20 0.23 16 FEF 25-75% (L/sec) 1.48 0.55 37 0.63 13 FEF Max (L/sec) 4.62 2.77 59 3.04 9 FIVC (L) 1.08 0.91 -16 FIF 50% (L/sec) 3.38 2.38 70 1.98 -16 FIF Max (L/sec) 2.51 2.40 -4 MVV (L/min) 72 23 31 Expiratory Time (sec) 5.56 5.70 2 Back Extrap Vol (L) 0.05 0.04 -18 Time To FEFmax (sec) 0.069 0.065 -5 LUNG VOLUMES SVC (L) 2.22 2.56 115 IC (L) 1.81 2.37 131 ERV (L) 0.41 0.18 44 TGV (L) 2.34 0.71 30 RV (Pleth) (L) 1.93 0.52 27 TLC (Pleth) (L) 4.15 3.08 74 RV/TLC (Pleth) (%) 44 17 38 DIFFUSION DLCOunc (ml/min/mmHg) 17.87 7.56 42 DLCOcor (ml/min/mmHg) 17.87 8.24 46 DL/VA (ml/min/mmHg/L) 4.31 4.54 105 VA (L) 4.15 1.81 43 BHT (sec) 10.90 IVC (L) 0.74 TLC (SB) (L) 1.96 AIRWAYS RESISTANCE Raw (cmH2O/L/s) 1.86 2.01 107 Gaw (L/s/cmH2O) 1.03 0.50 48 sRaw (cmH2O*s) 4.76 3.71 78 sGaw (1/cmH2O*s) 0.20 0.27 134 BLOOD GASES Hgb (gm/dL) 11.0
== END ==
LOC: M CARPUL 08:07
PROVIDERS: ATTEND Nurse Practitioner Adult Health
DX: R06.02 Shortness of breath (principal)

== ENCOUNTER 2020-12-17 09:56 | Outpatient (RCR) | payer MEDICARE | END 2020-12-18 | LOC: M PT 09:56 | PROVIDERS: ATTEND Family Medicine | DX: R22.42 Localized swelling, mass and lump, left lower limb (principal); I89.0 Lymphedema, not elsewhere classified ==

== ENCOUNTER → 2020-12-17 | Outpatient (CLI) | payer MEDICARE ==
--- NOTE | 2020-12-17 15:15 | REP ---
INDICATION: DISORDERS OF DIAPHRAGM. COMPARISON: None TECHNIQUE: This procedure was performed by Toña Lepe [facility], under the direct supervision of Dr. Barrera. Images were reviewed with Dr. Barrera prior to dictation. While the patient was standing in the AP position fluoroscopy was utilized while the patient did inspiration, expiration, and deep breathing techniques. FINDINGS: The right hemidiaphragm is elevated and appears essentially immobile during inspiration, expiration, and deep breathing. The left hemidiaphragm demonstrates normal amplitude and direction of motion with inspiration, expiration, and deep breathing. IMPRESSION: Immobile and elevated right hemidiaphragm during inspiration, expiration, and deep breathing. 0.3 minutes of fluoroscopy time was utilized for this procedure. Some fluoroscopic images are performed with last image hold technology. These images require no additional radiation. <Electronically signed by Toña Lepe > 12/17/20 1230 <Electronically signed by Agus Barrera > 12/17/20 [id number]
== END ==
LOC: M RAD 10:58
PROVIDERS: ATTEND Nurse Practitioner Adult Health
DX: J98.6 Disorders of diaphragm (principal)

== ENCOUNTER → 2021-01-29 | Outpatient (CLI) | payer MEDICARE ==
--- NOTE | 2021-02-02 17:32 | SLEEPCENT ---
DATE: 01/29/2021 ORDERED BY: Mar Grace RN, ANP Nocturnal polysomnography was performed for the re-titration of pressure therapy in this patient with obstructive sleep apnea syndrome. For testing, a ResMed F301 full mask of small size was used. 11 cm of water pressure were applied to the circuit and the lights were extinguished. Seven hours and 27 minutes of data were reviewed. There were 175.5 minutes of sleep identified. Sleep latency was normal at 6 minutes. REM sleep occurred normally at 127.5 minutes. Sleep architecture was somewhat interrupted. There were 4 REM cycles but periods of wake were identified resulting in reduced sleep efficiency of 40.1%. The electrocardiogram showed what appeared to be atrial fibrillation with an average heart rate of 90 beats per minute. EEG showed normal waveforms for wake and sleep, persistence of respiratory events prompted an increase in CPAP pressure and despite optimal mask fit and minimal air leak, the patient was changed to a bilevel device. Periods of wake persisted but best sleep was seen on bilevel inspiratory pressure of 16/expiratory pressure of 12 with some limb activity in the EMG leads, one train of 30. Event movement arousal index was 17.8. IMPRESSIONS: 1. Obstructive sleep apnea (G47.33). 2. Possible periodic limb movement disorder (G47.61). Limb movement arousal index was 17.8. RECOMMENDATION: Nightly use of pressure therapy via bilevel device, inspiratory 16/expiratory of 12 should be sufficient to address the patient's obstructive respiratory events. Interventional studies of frequency arousal from limb activity may also be helpful.
== END ==
LOC: M SLEEP 20:00
PROVIDERS: ATTEND Nurse Practitioner Adult Health
DX: G47.33 Obstructive sleep apnea (adult) (pediatric) (principal)

== ENCOUNTER → 2021-05-07 | Outpatient (REF) | payer MEDICARE ==
[~2021-05-07] MED LIST changes: +LOSA100T45 PO; -LOSA100T50 PO
== END ==
LOC: M LAB REF 16:53
PROVIDERS: ATTEND Internal Medicine Endocrinology, Diabetes & Metabolism
DX: E04.1 Nontoxic single thyroid nodule (principal)

== ENCOUNTER 2021-06-17 09:48 | Outpatient (RCR) | payer MEDICARE | END 2021-06-18 | LOC: M PT 09:48 | PROVIDERS: ATTEND Family Medicine | DX: R22.42 Localized swelling, mass and lump, left lower limb (principal); I89.0 Lymphedema, not elsewhere classified ==

== ENCOUNTER → 2021-07-01 | Outpatient (REF) | payer MEDICARE ==
[2021-07-01 14:07] LABS: APPEARANCE, URINE CLEAR (CLEAR); BACTERIA, URINE AUTO 2+ (NEGATIVE); BILIRUBIN, URINE AUTO NEGATIVE (NEGATIVE); BLOOD, URINE BLOOD NEGATIVE (NEGATIVE); COLOR, URINE STRAW (YELLOW); GLUCOSE, URINE (UA) AUTO NEGATIVE (NEGATIVE); KETONE, URINE AUTO NEGATIVE (NEGATIVE); LEUKOCYTE ESTERASE, URINE AUTO NEGATIVE (NEGATIVE); NITRITE, URINE AUTO NEGATIVE (NEGATIVE); PROTEIN, URINE AUTO NEGATIVE (NEGATIVE); RBC, URINE AUTO 1 /HPF (0-3); SPECIFIC GRAVITY URINE AUTO 1.005 (1.002-1.035); SQUAMOUS EPITHELIAL CELL UR AU 2 /HPF (0-6); UROBILINOGEN, URINE AUTO 0.2 mg/dL (0.0-2.0); WBC, URINE AUTO 1 /HPF (0-3)
== END ==
LOC: M SMT 13:39
PROVIDERS: ATTEND Urology
DX: N39.41 Urge incontinence (principal)

== ENCOUNTER → 2021-08-05 | Outpatient (CLI) | payer MEDICARE ==
[~2021-08-05] MED LIST changes: +ACET-841 PO; +ADV250INH INH; +CALC600C3 PO; +FLAX1CAP5 PO; +GARL500C2 PO; +MELA5TAB10 PO; +MYRB50TA PO; +POTA1TAB14 PO; +TORS20TA2 PO; +VITMTA PO
== END ==
LOC: M LABSMTC 10:36
PROVIDERS: ATTEND Anesthesiology
DX: Z01.818 Encounter for other preprocedural examination (principal); Z11.52 Encounter for screening for COVID-19

== ENCOUNTER 2021-08-10 06:12 | Day surgery (SDC) | payer MEDICARE ==
[~2021-08-10] VITALS: Ht 149.9 cm; Wt 75.2 kg
[~2021-08-10 06:12] MED LIST changes: +CIPROFLOXACIN 400 MG in IV 1 EA IV ONE
[2021-08-10] MEDS ORDERED: LR 1,000 ML IV SCH ×2 (06:50→08:00)
[2021-08-10] MEDS ORDERED: INSULIN LISPRO (NovoLOG) PER UNIT SC PRN ×2 (06:50→08:00)
[2021-08-10] MEDS ORDERED: BOTOX THERAPEUTIC 100 UNIT VIAL (J0585 PER 1 UNIT) As Ordered ONE (07:37)
[2021-08-10] MEDS ORDERED: propofoL 200 MG/20 ML VIAL As Ordered ONE (07:41)
[2021-08-10] MEDS ORDERED: LIDOCAINE 2% 100MG/5ML SDV (FOR ANES.) As Ordered ONE (07:41)
[2021-08-10] MEDS ORDERED: fentaNYL 100 MCG/2 ML INJECTION As Ordered ONE (07:41)
[2021-08-10] MEDS ORDERED: METOCLOPRAMIDE INJ 10MG/2ML VIAL (J2765 PER 1) As Ordered ONE (07:41)
[2021-08-10] MEDS ORDERED: dexameTHASONE 4 MG/ML 1ML VIAL (J1100 PER 1MG) As Ordered ONE (07:41)
[2021-08-10] MEDS ORDERED: ONDANSETRON 4MG/2ML VIAL As Ordered ONE (07:41)
[2021-08-10] MEDS ORDERED: PERCOCET 5MG/325MG TAB PO PRN (08:00)
[2021-08-10] MEDS ORDERED: ONDANSETRON 4MG/2ML VIAL IV PRN (08:00)
[2021-08-10] MEDS ORDERED: MACR100C43 PO (08:01)
[2021-08-10 08:10] VITALS: BP 125/104
== END 2021-08-10 08:35 | disposition home or self-care (01) ==
LOC: M SDC 06:12
PROVIDERS: ATTEND Urology
DX: N32.81 Overactive bladder (principal); N39.41 Urge incontinence; I10 Essential (primary) hypertension; E78.5 Hyperlipidemia, unspecified; E04.1 Nontoxic single thyroid nodule; R12 Heartburn; M85.80 Other specified disorders of bone density and structure, unspecified site; J44.9 Chronic obstructive pulmonary disease, unspecified; Z88.8 Allergy status to other drugs, medicaments and biological substances; Z79.899 Other long term (current) drug therapy
CPT/HCPCS: 52287; 87088; 87186; J0585; J0744; J1100; J2405; J2765; J3010

== ENCOUNTER → 2021-09-01 | Outpatient (REF) | payer MEDICARE ==
[~2021-09-01] MED LIST changes: -CIPROFLOXACIN 400 MG in IV 1 EA IV ONE; +MACR100C43 PO
[2021-09-01 18:31] LABS: APPEARANCE, URINE HAZY (CLEAR); BACTERIA, URINE AUTO 1+ (NEGATIVE); BILIRUBIN, URINE AUTO NEGATIVE (NEGATIVE); BLOOD, URINE BLOOD 1+ (NEGATIVE); COLOR, URINE RED (YELLOW); GLUCOSE, URINE (UA) AUTO NEGATIVE (NEGATIVE); KETONE, URINE AUTO NEGATIVE (NEGATIVE); LEUKOCYTE ESTERASE, URINE AUTO 3+ (NEGATIVE); MUCUS, URINE SMALL (NEGATIVE); NITRITE, URINE AUTO POSITIVE (NEGATIVE); PROTEIN, URINE AUTO NEGATIVE (NEGATIVE); RBC, URINE AUTO 0 /HPF (0-3); SPECIFIC GRAVITY URINE AUTO 1.006 (1.002-1.035); SQUAMOUS EPITHELIAL CELL UR AU 2 /HPF (0-6); UROBILINOGEN, URINE AUTO 0.2 mg/dL (0.0-2.0); WBC, URINE AUTO 18 /HPF (0-3)
== END ==
LOC: M SMT 16:56
PROVIDERS: ATTEND Urology
DX: N39.44 Nocturnal enuresis (principal)

== ENCOUNTER → 2022-03-20 | Outpatient (REF) | LOC: M LAB REF 15:37 | DX: E87.1 Hypo-osmolality and hyponatremia (principal) ==

== ENCOUNTER 2022-06-16 09:41 | Outpatient (RCR) | payer MEDICARE, OTHER ==
[~2022-06-16 09:41] MED LIST changes: +MONT-5 PO; -SING10TA32 PO
== END 2022-06-18 ==
LOC: M PT 09:41
PROVIDERS: ATTEND Family Medicine
DX: R22.42 Localized swelling, mass and lump, left lower limb (principal)

== ENCOUNTER → 2022-07-27 | Outpatient (REF) | payer OTHER ==
[~2022-07-27] MED LIST changes: +FLUT50SP17; -FLUTISP; -LOSA100T45 PO; +LOSA100T46 PO; +POTA-298 PO; -POTA1TAB14 PO
== END ==
LOC: M SFHCDERM 09:04
PROVIDERS: ATTEND Nurse Practitioner Family
DX: B35.1 Tinea unguium (principal); L82.1 Other seborrheic keratosis

== ENCOUNTER → 2022-10-18 | Day surgery (SDC) | payer OTHER ==
[~2022-10-18] VITALS: Ht 152.4 cm; Wt 80.1 kg
[~2022-10-18] MED LIST changes: +ALBU8.5H INH; +CLOT1CRE71 TOP; +FLUC150T9 PO; +FLUT1BLS5 INH; +LORA-674 PO; +MONT10TA97 PO; +MUPI2OI TOP; +NS 1,000 ML IV ONE; +PANT40TA29 PO; -ROPI0.5T3 PO; +ROPI0.5T33 PO; +SOLI10TA PO; +SPIR50TA4 PO; +prevagen PO; +propofoL 200 MG/20 ML VIAL As Ordered ONE
[2022-10-18 11:18] VITALS: TEMP 96.4
[2022-10-18 11:34] VITALS: BP 136/65; O2SAT 99
== END | disposition home or self-care (01) ==
LOC: M OPP 09:12
PROVIDERS: ATTEND Internal Medicine Gastroenterology
DX: D12.6 Benign neoplasm of colon, unspecified (principal); K64.0 First degree hemorrhoids; K57.30 Diverticulosis of large intestine without perforation or abscess without bleeding; R19.5 Other fecal abnormalities; Z79.02 Long term (current) use of antithrombotics/antiplatelets; Z79.52 Long term (current) use of systemic steroids; Z79.51 Long term (current) use of inhaled steroids; Z79.82 Long term (current) use of aspirin; Z88.8 Allergy status to other drugs, medicaments and biological substances

== ENCOUNTER → 2023-07-12 | Outpatient (CLI) | payer OTHER ==
[~2023-07-12] MED LIST changes: +B-12100021 PO; +CEPH500C PO; -FLUT50SP17; +FLUTISP; +HYDR-3713 PO; +LIDOCAINE 1% MDV 20ML VIAL As Ordered ONE; +LORA-1041 PO; -LORA-674 PO; -NS 1,000 ML IV ONE; -OXYB5TAB10 PO; +OXYB5TAB14 PO; +TRIA1OI TOP; +[UNRECOGNIZED DRUG - CODE] PO; -propofoL 200 MG/20 ML VIAL As Ordered ONE
[2023-07-12 09:45] VITALS: TEMP 98.7
[2023-07-12 11:28] VITALS: BP 151/67; O2SAT 98
== END ==
LOC: M IRPRO 09:38
PROVIDERS: ATTEND Otolaryngology
DX: R22.1 Localized swelling, mass and lump, neck (principal)

== ENCOUNTER 2023-07-14 07:43 | Day surgery (SDC) | payer OTHER ==
[~2023-07-14] VITALS: Ht 149.9 cm; Wt 77.1 kg
[~2023-07-14 07:43] MED LIST changes: -CEPH500C PO; -HYDR-3713 PO; -LIDOCAINE 1% MDV 20ML VIAL As Ordered ONE
[2023-07-14] MEDS ORDERED: propofoL 200 MG/20 ML VIAL As Ordered ONE (09:07)
[2023-07-14] MEDS ORDERED: LIDOCAINE 2% 100MG/5ML SDV (FOR ANES.) As Ordered ONE (09:07)
[2023-07-14] MEDS ORDERED: ONDANSETRON 4MG 2ML VIAL As Ordered ONE (09:07)
[2023-07-14] MEDS ORDERED: fentaNYL 100 MCG/2 ML INJECTION As Ordered ONE (09:13)
[2023-07-14] MEDS ORDERED: MIDAZOLAM INJ 2MG/2ML VIAL As Ordered ONE (09:13)
[2023-07-14] MEDS: ceFAZolin SOD 2 GM in IV 1 EA IV ONE (10:27)
[2023-07-14] MEDS ORDERED: ACETAMINOPHEN 1000MG 100ML IV BAG As Ordered ONE (10:38)
[2023-07-14] MEDS: LIDOCAINE 1% SDV 30ML VIAL As Ordered ONE (10:50)
[2023-07-14] MEDS ORDERED: HYDR-3713 PO (10:59)
[2023-07-14] MEDS ORDERED: CEPH500C PO (10:59)
[2023-07-14 11:35] VITALS: BP 130/63; TEMP 97.9; O2SAT 98
== END 2023-07-14 11:43 | disposition home or self-care (01) ==
LOC: M SDC 07:43
PROVIDERS: ATTEND Urology
DX: N39.41 Urge incontinence (principal); I10 Essential (primary) hypertension; J44.9 Chronic obstructive pulmonary disease, unspecified; E78.00 Pure hypercholesterolemia, unspecified; Z79.899 Other long term (current) drug therapy; Z79.82 Long term (current) use of aspirin; K21.9 Gastro-esophageal reflux disease without esophagitis; Z79.01 Long term (current) use of anticoagulants; Z99.81 Dependence on supplemental oxygen; Z88.8 Allergy status to other drugs, medicaments and biological substances
CPT/HCPCS: 64561; 76000; C1778; C1897; J0131; J0690; J1100; J2250; J2405; J3010

== ENCOUNTER → 2024-07-25 | Outpatient (CLI) | payer MEDICARE ==
[~2024-07-25] MED LIST changes: -ADV250INH INH; +ADVA1AER9 INH; +BAYE81TA7 PO; +CEPH500C PO; +CETI10CA13 PO; -CYCL5TAB PO; +CYCL5TAB4 PO; -GARL500C2 PO; +GARL500C6 PO; +HYDR-3713 PO; +LEVA15HF2 INH; -LEVAINH INH; +ODOR100T3 PO; +ROPI2TAB46 PO; +SPIR-10 PO; +THERTAB52 PO
== END ==
LOC: M RAD 14:35
PROVIDERS: ATTEND Otolaryngology
DX: E04.2 Nontoxic multinodular goiter (principal)